=== PATIENT | female | born 1990 | race Caucasian/White ===

== ENCOUNTER → 2022-04-26 15:32 | Outpatient (CLI) | payer BC, SELFPAY | PROVIDERS: PCP Family Medicine; Visit Provider Obstetrics & Gynecology | DX: Z80.3 Family history of malignant neoplasm of breast (principal) | CPT/HCPCS: 36415 ==

== ENCOUNTER → 2022-04-30 13:29 | Outpatient (CLI) | payer BC, SELFPAY ==
--- NOTE | 2022-04-30 13:31 | MM_ITS ---
PROCEDURE INFORMATION: Exam: MG Bilateral Screening 3D Mammography Exam date and time: 04/30/2022 1:23 PM Age: 31 years old Clinical indication: Screening mammogram. TECHNIQUE: Imaging protocol: Bilateral Screening tomosynthesis and 2D mammography including computer-aided detection (CAD) when performed. COMPARISON: No relevant prior studies available. FINDINGS: MAMMOGRAPHY: Breast composition: There are scattered areas of fibroglandular density. Mass: None. Architectural distortion: No new or suspicious architectural distortion. Calcifications: No new or suspicious calcifications are present Asymmetric density: No new or suspicious asymmetric density is present Skin thickening: None. Axillary adenopathy: None. IMPRESSION: No mammographic evidence of malignancy. Recommend annual screening mammography unless otherwise clinically indicated. ASSESSMENT: BI-RADS category 1: Negative
== END ==
PROVIDERS: PCP Family Medicine; Visit Provider Obstetrics & Gynecology
DX: Z12.31 Encounter for screening mammogram for malignant neoplasm of breast (principal); Z80.3 Family history of malignant neoplasm of breast
CPT/HCPCS: 77063; 77067

== ENCOUNTER → 2022-06-01 15:22 | Outpatient (POV) | payer BC, SELFPAY | PROVIDERS: Visit Provider Dermatology | DX: Z00.00 Encounter for general adult medical examination without abnormal findings (principal) ==

== ENCOUNTER → 2022-09-21 12:55 | Outpatient (POV) | payer BC, SELFPAY | PROVIDERS: Visit Provider Dermatology | DX: Z00.00 Encounter for general adult medical examination without abnormal findings (principal) ==

== ENCOUNTER 2023-02-01 16:00 | Emergency (ER) | payer BC, SELFPAY ==
[2023-02-01 16:10] VITALS: BP 150/97; PULSE 115; RESP 20; TEMP 37; O2SAT 100; BMI 29.7
[2023-02-01 16:29] LABS: UTC Strep Screen (Rapid) Positive (Negative)
--- NOTE | 2023-02-01 16:50 | EXP.UTC ---
Discharge Plan Disposition Patient Disposition: Home, Self-Care Condition: Good Prescriptions Prescriptions: New prednisone 10 mg tablet 10 mg PO BID 3 Days Qty: 6 0RF amoxicillin [amoxicillin] 875 mg tablet 875 mg PO Q12H Qty: 20 0RF ondansetron 4 mg Tablet,Disintegrating 4 mg PO Q8H PRN (Reason: Nausea) Qty: 12 0RF No Action Qelbree 200 mg capsule,extended release 24hr 400 mg PO DAILY Qty: 60 1RF vortioxetine 20 mg tablet 20 mg PO DAILY Qty: 30 3RF atomoxetine [Strattera] 40 mg capsule 40 mg PO DAILY Referrals Follow up/Referrals: Jaron Lewis MD [Primary Care Provider] - See instructions Activity Restrictions/Add. Instructions Additional Instructions/Restrictions: Drink plenty of fluids. Take tylenol or ibuprofen for pain or fever. Take the medications as directed. Follow up with your regular doctor. GO TO THE ER FOR ANY WORSENING SYMPTOMS Throw your tooth brush away and get a new one. Clinical Impressions Clinical Impression: Strep throat Instructions Patient Instructions: Strep Throat, DI for Strep Throat Discharge ED Provider: Lizandro White [facility] General Stated complaint: fever sore throat Mode of Arrival: Ambulatory Source of Information: Patient Limitations: No Limitations Time Seen by Provider: 02/01/23 16:50 Description of Symptoms (Recalled from Triage Doc. by RN): sore throat, fever, achy, chills HEENT Symptoms (Recalled from RN notes): Yes Resp Symptoms (Recalled from RN notes): No Skin Symptoms (Recalled from RN notes): No MS Symptoms (Recalled from RN notes): No Functional Status (Recalled from RN notes): n/a History of Present Illness Provider Complaint: She states that she has had sore throat, chills, and malaise for the past 2 days. Related Data Home Medications Medication Instructions Recorded Confirmed atomoxetine 40 mg capsule 40 mg PO DAILY . 02/01/23 02/01/23 (Strattera) Previous Rx's Medication Instructions Recorded viloxazine 200 mg capsule,extended 400 mg PO DAILY #60 caps 12/13/22 release 24 hr (Qelbree) vortioxetine 20 mg tablet 20 mg PO DAILY #30 tabs 12/13/22 amoxicillin 875 mg tablet 875 mg PO Q12H #20 tabs 02/01/23 ondansetron 4 mg disintegrating 4 mg PO Q8H PRN Nausea #12 tabs 02/01/23 tablet prednisone 10 mg tablet 10 mg PO BID 3 days #6 tabs 02/01/23 Allergies Allergy/AdvReac Type Severity Reaction Status Date / Time Sulfa (Sulfonamide Allergy Verified 02/01/23 16:23 Antibiotics) sulfamethoxazole Allergy Verified 02/01/23 16:23 [From Bactrim] trimethoprim [From Bactrim] Allergy Verified 02/01/23 16:23 Worker's Comp Is this a Worker's Comp case?: No [facility] Disclaimer: The information contained in this section may have been updated after the patient was seen, as this information can be updated by other users. Medical History Attention deficit disorder (ADD) in adult Bipolar II disorder Social History Smoking Status: Never smoker alcohol intake: never substance use type: denies use current occupational status: employed and other Travel in the last 8 weeks: None number of children: 2 ROS Obtained: Yes All systems reviewed & no additional complaints except as documented Constitutional Constitutional: Reports chills and Reports fever(s) Eyes Eyes: Denies eye discharge ENT Ears, Nose, Mouth, and Throat: Reports as per HPI Cardiovascular Cardiovascular: Denies chest pain Respiratory Respiratory: Denies chest congestion and Reports cough Gastrointestinal Gastrointestingal: Reports nausea; Denies abdominal pain, constipation, cramping, diarrhea or vomiting Musculoskeletal Musculoskeletal: Denies arthralgias Integumentary/Breasts Skin/Breast: Denies rash Neurologic Neurologic: Denies paresthesias Physical Exam General General appearance: a
[2023-02-01 17:12] VITALS: BP 150/97; PULSE 115; RESP 20; TEMP 37; O2SAT 100
== END 2023-02-01 17:11 | disposition home or self-care (01) ==
PROVIDERS: Emergency Provider Nurse Practitioner Family; PCP Family Medicine
DX: J02.0 Streptococcal pharyngitis (principal); R53.81 Other malaise; R50.9 Fever, unspecified
CPT/HCPCS: 87880; 99212; 99214; G0463

== ENCOUNTER 2024-07-24 16:48 | Outpatient (CLI) | payer BC, SELFPAY ==
--- NOTE | 2024-07-24 16:48 | MM_ITS ---
PROCEDURE INFORMATION: Exam: MG Bilateral Screening 3D Mammography Exam date and time: 07/24/2024 4:34 PM Age: 33 years old Clinical indication: Screening. Her mother, maternal grandmother, paternal aunt had breast cancer. TECHNIQUE: Imaging protocol: Bilateral Screening tomosynthesis and 2D mammography including computer-aided detection (CAD) when performed. COMPARISON: MG MM DIG SCREENING MAMM BI W/CAD 04/30/2022 1:23 PM FINDINGS: MAMMOGRAPHY: Breast composition: There are scattered areas of fibroglandular density. Mass: No suspicious mass. Architectural distortion: None. Calcifications: No suspicious calcifications. Asymmetric density: None. Skin thickening: None. Axillary adenopathy: None. IMPRESSION: No mammographic evidence of malignancy. Annual screening is recommended unless otherwise clinically indicated. ASSESSMENT: BI-RADS Category 1: Negative.
== END 2024-07-24 23:59 | disposition home or self-care (01) ==
LOC: RAD 16:48
PROVIDERS: PCP Obstetrics & Gynecology; Visit Provider Obstetrics & Gynecology
DX: Z12.31 Encounter for screening mammogram for malignant neoplasm of breast (principal); Z80.3 Family history of malignant neoplasm of breast
CPT/HCPCS: 77063; 77067

== ENCOUNTER 2024-08-04 10:09 | Outpatient (CLI) | payer BC, SELFPAY ==
[2024-08-04 10:52] LABS: Basophils % 0.7 % (0.1-2.0); Eosinophils # 0.2 K/mm3 (0.0-0.4); Eosinophils % 2.4 % (0.1-12.0); Hematocrit 38.4 % (37.0-47.0); Hemoglobin 13.1 g/dL (12.2-16.2); Lymphocytes # 2.3 K/mm3 (0.7-4.5); Lymphocytes % 38.5 % (10-50); Mean Corpuscular Hemoglobin 28.7 pg (27.0-31.2); Mean Corpuscular Volume 84.4 fl (81-99); Mean Platelet Volume 7.3 fl (7.4-10.4); Monocytes # 0.3 K/mm3 (0.1-1.0); Monocytes % 5.3 % (1.7-9.3); Neutrophils # 3.2 K/mm3 (1.8-7.8); Neutrophils % 53.1 % (37.0-80.0); Platelet Count 365 K/mm3 (142-424); Red Blood Count 4.55 M/mm3 (4.20-5.40); Red Cell Distribution Width 12.8 % (11.5-17.5); White Blood Count 6.1 K/mm3 (4.8-10.8)
[2024-08-04 11:11] LABS: Alanine Aminotransferase 57 U/L (12-78); Albumin Level 4.2 g/dl (3.5-5.0); Albumin/Globulin Ratio 1.6 (1.1-1.8); Alkaline Phosphatase 69 U/L (38-126); Anion Gap 8.4 mEq/L (5-15); Aspartate Amino Transferase 41 U/L (14-36); Bilirubin,Total 0.6 mg/dl (0.2-1.3); Blood Urea Nitrogen 12 mg/dl (7-17); Calcium 9.2 mg/dl (8.4-10.2); Carbon Dioxide 25 mmol/L (22.0-30.0); Chloride 109 mmol/L (98-107); Estimated Glomerular Filt Rate 82 ml/min (>60); GFR (African American) 99 ML/MIN (>60); Globulin 2.7 g/dL (1.3-3.2); Glucose 87 mg/dl (74-100); Potassium 4.4 mmoL/L (3.5-5.1); Sodium 138 mmol/L (136-145); Total Protein,Serum 6.9 g/dl (6.3-8.2)
[2024-08-04 11:32] LABS: Hemoglobin A1C 5.2 % (4.0-6.0)
[2024-08-05 09:09] LABS: Estradiol 19.5 pg/mL (.); FSH 5.4 mIU/mL (.); LH 6.5 mIU/mL (.); Progesterone 0.1 ng/mL (.)
[2024-08-06 12:15] LABS: Insulin Level Total 10.7 uIU/mL (2.6-24.9)
[2024-08-16 01:08] LABS: Anti Mullerian Hormone (AMH) 7.41 ng/mL (.)
[2024-08-23 20:10] LABS: Testosterone, Total, LC/MS 25 ng/dL (.)
== END 2024-08-04 23:59 | disposition home or self-care (01) ==
LOC: LAB 10:09
PROVIDERS: PCP Obstetrics & Gynecology; Visit Provider Obstetrics & Gynecology
DX: Z31.9 Encounter for procreative management, unspecified (principal); Z98.890 Other specified postprocedural states
CPT/HCPCS: 36415; 80050; 80053; 82397; 82670; 83001; 83002; 83036; 83525; 84144; 84403; 84443; 85025

== ENCOUNTER 2024-08-14 18:25 | Emergency (ER) | payer BC, SELFPAY ==
[2024-08-14 18:55] VITALS: BP 122/78; PULSE 119; RESP 20; TEMP 37.7; O2SAT 99; BMI 32.5
[2024-08-14 19:09] LABS: Microscopic, Urine URINE MICROSCOPIC (MICROSCOPIC)
[2024-08-14 19:11] LABS: UTC Influenza A Antigen Negative (Negative)
[2024-08-14 19:12] LABS: UTC Strep Screen (Rapid) Negative (Negative)
[2024-08-14 19:12] LABS: Appearance,Urine CLEAR (Clear); Bilirubin,Urine Negative (Negative); Blood, Urine 1+ (Negative); Color,Urine YELLOW (Yellow); Glucose,Urine (UA) Negative (Negative); Ketones,Urine 1+ (Negative); Leukocyte Esterase,Urine Negative (Negative); Nitrate,Urine Negative (Negative); Protein,Urine TRACE (Negative); Specific Gravity, Urine >= 1.030 (1.005-1.030); Urobilinogen,Urine 0.2 EU/dl (0.2)
[2024-08-14 19:12] LABS: UTC Influenza B Antigen Negative (Negative)
--- NOTE | 2024-08-14 19:21 | ED_ITS ---
Discharge Plan Disposition Patient Disposition: Home, Self-Care Condition: Good Prescriptions Prescriptions: New methylprednisolone 4 mg Tablets,Dose Pack 4 mg PO DIRECTED 6 Days Qty: 21 0RF Rx Instructions: Take 1 pack as directed for 6 days [id number] [Bromfed DM] 2-30-10 mg/5 mL Syrup 5 ml PO Q6H PRN (Reason: Cough) Qty: 240 0RF ondansetron 4 mg Tablet,Disintegrating 4 mg PO Q8H PRN (Reason: Nausea) Qty: 12 0RF amoxicillin 875 mg tablet 875 mg PO Q12H Qty: 20 0RF No Action Trintellix 20 mg tablet 20 mg PO DAILY clomiphene citrate [Clomid] 50 mg tablet 50 mg PO DAILY 5 Days Qty: 5 0RF Rx Instructions: Take days 3-7 of your next cycle Referrals Follow up/Referrals: Provider,Referral, MD [Primary Care Provider] - See instructions Activity Restrictions/Add. Instructions Additional Instructions/Restrictions: Drink plenty of fluids. Take tylenol or ibuprofen for pain or fever. Take the medications as directed. Follow up with your regular doctor. GO TO THE ER FOR ANY WORSENING SYMPTOMS Clinical Impressions Clinical Impression: Sinusitis, Bronchitis, Acute viral syndrome Stand Alone Forms Stand Alone Forms: Work/School Release Instructions Patient Instructions: Sinusitis, DI for Sinusitis Print Language Print Language: Syriac Discharge ED Provider: Lizandro White [facility] General Stated complaint: Fever,cough,congestion Mode of Arrival: Ambulatory Source of Information: Patient Limitations: No Limitations Time Seen by Provider: 08/14/24 19:08 Description of Symptoms (Recalled from Triage Doc. by RN): PATIENT C/O FEVER, COUGH, FEELING TIRED, BODY ACHES, AND PAIN WITH URINATION X 5 DAYS HEENT Symptoms (Recalled from RN notes): No Resp Symptoms (Recalled from RN notes): Yes Skin Symptoms (Recalled from RN notes): No MS Symptoms (Recalled from RN notes): No Functional Status (Recalled from RN notes): WNL History of Present Illness Provider Complaint: For the past 2 days she has had fever, chills, sinus congestion and chest congestion. Related Data Home Medications ?Medication ?Instructions ?Recorded ?Confirmed vortioxetine 20 mg tablet 20 mg PO DAILY 07/19/24 08/14/24 (Trintellix) Previous Rx's ?Medication ?Instructions ?Recorded clomiphene citrate 50 mg tablet 50 mg PO DAILY 5 days #5 tabs 07/19/24 (Clomid) amoxicillin 875 mg tablet 875 mg PO Q12H #20 tabs 08/14/24 zqlrvuqtyemeaix-qzkgtuhjazgkeyi-KB 5 ml PO Q6H PRN Cough #240 mL 08/14/24 2 mg-30 mg-10 mg/5 mL oral syrup (Bromfed DM) methylprednisolone 4 mg tablets in 4 mg PO DIRECTED 6 days #21 tabs 08/14/24 a dose pack ondansetron 4 mg disintegrating 4 mg PO Q8H PRN Nausea #12 tabs 08/14/24 tablet Allergies Allergy/AdvReac Type Severity Reaction Status Date / Time Sulfa (Sulfonamide Allergy Verified 08/13/24 15:33 Antibiotics) sulfamethoxazole Allergy Verified 08/13/24 15:33 [From Bactrim] trimethoprim [From Bactrim] Allergy Verified 08/13/24 15:33 Worker's Comp Is this a Worker's Comp case?: No [facility] Disclaimer: The information contained in this section may have been updated after the patient was seen, as this information can be updated by other users. Medical History (Updated 08/14/24 @ 19:23 by Lizandro White APRN) Polycystic ovaries Depression Family history of breast cancer Patient desires Attention deficit disorder (ADD) in adult Bipolar II disorder Surgical History History of reversal of tubal ligation Family History Grandmother Cancer maternal-breast Mother Cancer breast Social History Smoking Status: Never smoker alcohol intake: never substance use type: denies use current occupational status: employed and other Travel in the last 8 weeks: None number of children: 2 ROS Obtained: Yes All systems reviewed & no additional complaints except as documented Constitutional Constitutional: Reports chills and Reports fever(s) Eyes Eyes: Denies eye discharge ENT Ears, Nose, Mouth, and Throat: Reports as per HPI Cardiovascular Cardiovascular: Denies chest pain Respiratory Respiratory: Denies chest congestion and Reports cough Gastrointestinal Gastrointestingal: Reports nausea; Denies abdominal pain, constipation, cramping, diarrhea or vomiting Musculoskeletal Musculoskeletal: Denies arthralgias Integumentary/Breasts Skin/Breast: Denies rash Neurologic Neurologic: Denies paresthesias Physical Exam General General appearance: alert and in no apparent distress Head Head exam: atraumatic, normocephalic and normal inspection Eye Eye exam: Present normal appearance, PERRL and EOMI ENT ENT exam: Present mucous membranes moist and normal external ear exam Expanded ENT Exam TM/Canal exam: Bilateral TM: erythema and bulging Nose exam: Absent sinus tenderness Mouth exam: Present normal external inspection; Absent drooling Teeth exam: Present normal inspection Throat exam: Present tonsillar erythema, tonsillomegaly and tonsillar exudate Neck Neck exam: Present normal inspection, full ROM and trachea midline; Absent tenderness, meningismus or lymphadenopathy Chest Chest inspection: Present normal inspection and symmetric chest wall rise; Absent tenderness Respiratory Respiratory exam: Present normal lung sounds bilaterally; Absent respiratory distress, wheezes, stridor or accessory muscle use Cardiovascular Cardiovascular exam: Present regular rate and normal rhythm; Absent systolic murmur or diastolic murmur Abdominal Exam Abdominal exam: Present soft and normal bowel sounds; Absent distention, tenderness, guarding, rebound or rigidity Extremities Exam Extremities exam: Present normal inspection and normal capillary refill; Absent calf tenderness Back Exam Back exam: Present normal inspection and full ROM; Absent tenderness, CVA tenderness (R) or CVA tenderness (L) Neurological Exam Neurological exam: Present alert, oriented X3 and CN II-XII intact Psychiatric Psychiatric exam: Present normal affect and normal mood Skin Skin exam: Present warm, dry, intact and normal color Medical Decision Making Medical Records Medical records reviewed: No I reviewed the patient's medical records. Screening: Per USPSTF and CDC recommendations, given the prevalence of disease in our region, it is our hospital?s policy to screen for HIV and viral Hepatitis for all patients aged 18 and over and those with ongoing risk factors. Reynaldo Inquiry Pt receiving controlled substance: No Vital Signs: 08/14/24 18:55 Temperature 99.8 F H Temperature Source Oral Pulse Rate [Left Brachial] 119 H Respiratory Rate 20 Blood Pressure [Left Arm] 122/78 Blood Pressure Mean [Left Arm] 92 Blood Pressure Source [Left Arm] Automatic Cuff Blood Pressure Position [Left Arm] Sitting 02 Sat by Pulse Oximetry 99 Oxygen Delivery Method Room Air Lab Data Lab results reviewed: Yes I reviewed the patient's lab results. Lab Results 08/14/24 18:48: Urine Color Yellow, Urine Appearance Clear, Urine pH 6.0, Ur Specific [place] >= 1.030, Urine Protein Trace, Urine Glucose (UA) Negative, Urine Ketones 1+, Urine Blood 1+ A, Urine Nitrate Negative, Urine Bilirubin Negative, Urine Urobilinogen 0.2, Ur Leukocyte Esterase Negative 08/14/24 19:01: Strep Scn Rapid [facility] Negative 08/14/24 19:02: Influenza Type A Ag Negative, Influenza Type B Ag Negative Orders (Tests/Meds): ORDERS Category Date Time Status UA [Urinalysis and Microscopic] Stat Lab 08/14/24 18:48 Results Strep Screen Confirmation Stat Micro 08/14/24 19:01 Received
[2024-08-14 19:25] VITALS: BP 122/78; PULSE 119; RESP 20; TEMP 37.7; O2SAT 99
[2024-08-14 19:28] LABS: Bacteria,Urine 2+ /lpf; Mucus,Urine 4+ /lpf; RBC,Urine 20-50 #/hpf (0-3); Squamous Epithelial Cell,Urine 20-50 #/hpf (0-5)
== END 2024-08-14 19:30 | disposition home or self-care (01) ==
PROVIDERS: Emergency Provider Nurse Practitioner Family
DX: J01.90 Acute sinusitis, unspecified (principal); J40 Bronchitis, not specified as acute or chronic; B34.9 Viral infection, unspecified
CPT/HCPCS: 81001; 87086; 87635; 87804; 87880; 99213; G0381

== ENCOUNTER 2024-09-21 16:53 | Outpatient (CLI) | payer BC, SELFPAY ==
[2024-09-22 10:18] LABS: Progesterone 17.6 ng/mL (.)
== END 2024-09-21 23:59 | disposition home or self-care (01) ==
LOC: LAB 16:55
PROVIDERS: Visit Provider Obstetrics & Gynecology
DX: Z31.9 Encounter for procreative management, unspecified (principal)
CPT/HCPCS: 36415; 84144

== ENCOUNTER 2024-10-05 07:05 | Outpatient (CLI) | payer BC, SELFPAY ==
[2024-10-05 08:41] LABS: HCG,Quantitative 876 mIU/ml (0-5.42)
[2024-10-06 09:20] LABS: Progesterone 19.4 ng/mL (.)
== END 2024-10-05 23:59 | disposition home or self-care (01) ==
PROVIDERS: Visit Provider Obstetrics & Gynecology
DX: N92.6 Irregular menstruation, unspecified (principal); Z34.90 Encounter for supervision of normal pregnancy, unspecified, unspecified trimester
CPT/HCPCS: 36415; 84144; 84702

== ENCOUNTER 2024-11-08 15:10 | Outpatient (CLI) | payer BC, SELFPAY ==
[2024-11-09 19:19] LABS: Neisseria gonorrhoeae, NAA Negative (Negative)
== END 2024-11-08 23:59 | disposition home or self-care (01) ==
LOC: LAB.DROPOF 11-09 10:19
PROVIDERS: PCP Obstetrics & Gynecology; Visit Provider Obstetrics & Gynecology
DX: Z34.81 Encounter for supervision of other normal pregnancy, first trimester (principal)
CPT/HCPCS: 87086; 87491; 87591

== ENCOUNTER 2024-11-22 16:39 | Outpatient (CLI) | payer BC, SELFPAY ==
[2024-11-22 16:59] LABS: Basophils % 0.2 % (0.1-2.0); Eosinophils # 0.1 K/mm3 (0.0-0.4); Eosinophils % 1.3 % (0.1-12.0); Hematocrit 32.8 % (37.0-47.0); Hemoglobin 11.3 g/dL (12.2-16.2); Lymphocytes # 2.7 K/mm3 (0.7-4.5); Lymphocytes % 28.7 % (10-50); Mean Corpuscular HGB Conc 34.5 g/dL (31.8-35.4); Mean Corpuscular Hemoglobin 28.8 pg (27.0-31.2); Mean Corpuscular Volume 83.5 fl (81-99); Mean Platelet Volume 9.4 fl (7.4-10.4); Monocytes # 0.6 K/mm3 (0.1-1.0); Neutrophils % 63.4 % (37.0-80.0); Platelet Count 327 K/mm3 (142-424); Red Blood Count 3.93 M/mm3 (4.20-5.40); Red Cell Distribution Width 12.5 % (11.5-17.5); White Blood Count 9.5 K/mm3 (4.8-10.8)
[2024-11-22 18:49] LABS: HIV Combo NEGATIVE (Negative)
[2024-11-22 18:56] LABS: Hepatitis C Ab Qual. W/ RFX NEGATIVE (Negative)
[2024-11-23 05:08] LABS: Hepatitis B Surface Antigen Negative (Negative)
[2024-11-23 12:19] LABS: RPR W/RFX Titers Nonreactive (Nonreactive)
== END 2024-11-22 23:59 | disposition home or self-care (01) ==
LOC: LAB 16:39
PROVIDERS: Visit Provider Obstetrics & Gynecology
DX: Z34.81 Encounter for supervision of other normal pregnancy, first trimester (principal)
CPT/HCPCS: 85025; 86592; 86762; 86803; 86850; 87340; 87389

== ENCOUNTER 2025-01-21 13:41 | Outpatient (CLI) | payer BC, SELFPAY ==
--- NOTE | 2025-01-21 13:42 | US_ITS ---
PROCEDURE: US OB /MATERNAL DETAIL CLINICAL INDICATION: Screening for malformation/anatomy scan COMPARISON: No exams were available for comparison FINDINGS: Transabdominal sonographic images of the pelvis were obtained. From her established due date she is 20 weeks 2 days. Single viable intrauterine gestation. Breech position. Placenta: Anteriorplacenta grade 1. There is an average amount of fluid. The cervix appears satisfactory. Closed and measuring 4.73 cm in length. Complete survey performed and was unremarkable on the submitted images as in PACS. No discrete anomalies identified on survey imaging by technologist. Active fetus. Three-vessel cord with satisfactory umbilical cord insertion. 4- chamber heart noted. Situs, aortic arch, LVOT, RVOT, appear normal. Three-vessel view not seen well today. Survey of brain & ventricles Unremarkable. Cerebellum, thalamus, choroid plexus, cisterna magna appear normal. Face and neck survey unremarkable. Profile, nasion, lips and nose appeared normal. Diaphragm and chest views unremarkable. Abdomen: Both kidneys noted and unremarkable. Stomach and bladder noted and satisfactory. Spine: Survey of the spine satisfactory with no anomalies identified nor imaged. Cervical, thoracic, lower spine appear normal. Entire spine not completely seen well. Both arms and legs noted. Amniotic Fluid: Adequate. MVP 5.13 cm. Measurements: Average ultrasound age 20weeks 1day. Estimated due date by ultrasound age 0806/09/2025. Estimated weight 349g BPD = 19weeks 3days HC = 19weeks 5days AC = 20weeks 3days FL = 20weeks 5days Growth Percentile= 50 Heart Rate = 161bpm Cerebellum = 20weeks 2days Humerus = 20weeks 5days HC/AC is 1.13 FL/BPD is 0.77 FL/AC is 0.22 IMPRESSION: 1. Viable fetus in the breech presentation with an anterior placenta grade 1. 2. The fluid is within normal limits with an MVP 5.13 cm. 3. Cardiac views and spinal views were not completely seen today due to position. Suggest repeat scan in 2-3 weeks. 4. The rest of the anatomical scan appears normal. 5. biometry is consistent with the dates. Dictated by: Chris Wolf MD 01/21/2025 15:58 Chris Wolf MD in [place] 01/21/2025 15:58
== END 2025-01-21 23:59 | disposition home or self-care (01) ==
LOC: RAD 13:42
PROVIDERS: PCP Obstetrics & Gynecology; Visit Provider Obstetrics & Gynecology
DX: Z36.3 Encounter for antenatal screening for malformations (principal); Z3A.20 20 weeks gestation of pregnancy
CPT/HCPCS: 76811

== ENCOUNTER 2025-02-06 12:48 | Outpatient (CLI) | payer BC, SELFPAY ==
[2025-02-06 13:07] VITALS: BP 125/68; PULSE 91; RESP 18; TEMP 36.8; O2SAT 98; BMI 31.1
[2025-02-06 13:28] VITALS: BMI 31.1
[2025-02-06 13:44] LABS: Microscopic, Urine URINE MICROSCOPIC (MICROSCOPIC)
[2025-02-06 14:17] LABS: Bilirubin,Urine Negative (Negative); Blood, Urine 3+ (Negative); Color,Urine YELLOW (Yellow); Glucose,Urine (UA) Negative (Negative); Ketones,Urine Negative (Negative); Leukocyte Esterase,Urine 1+ (Negative); Nitrate,Urine Negative (Negative); Protein,Urine 2+ (Negative); Specific Gravity, Urine 1.025 (1.005-1.030); Urobilinogen,Urine 0.2 EU/dl (0.2)
[2025-02-06] MEDS: CEFTRIAXONE 1 GM 1 GM in 0.9 % SODIUM CHLORIDE 50 ML IV (15:13)
[2025-02-06 15:27] LABS: Appearance,Urine Cloudy (Clear); Bacteria,Urine 4+ /lpf; RBC,Urine TNTC #/hpf (0-3); Squamous Epithelial Cell,Urine 20-50 #/hpf (0-5); WBC,Urine TNTC #/hpf (0-3)
[2025-02-06] MEDS: LACTATED RINGERS 1000ML 1,000 ML 999 ML IV (15:43)
[2025-02-06] MEDS: ACETAMINOPHEN 500MG TAB 1000 MG PO (15:44)
== END 2025-02-06 17:15 | disposition home or self-care (01) ==
LOC: OBOUT 12:49 → OB 12:50
PROVIDERS: Visit Provider Obstetrics & Gynecology
DX: O26.852 Spotting complicating pregnancy, second trimester (principal); Z3A.22 22 weeks gestation of pregnancy
CPT/HCPCS: 81001; 87086; 87088; 87186; G0463; J0696; J7120

== ENCOUNTER 2025-02-07 15:29 | Outpatient (CLI) | payer BC, SELFPAY ==
--- NOTE | 2025-02-07 15:45 | US_ITS ---
PROCEDURE: US OB FOLLOW UP CLINICAL INDICATION: Repeat anatomy due to spinal heart views. COMPARISON: US US OB /MATERNAL DETAIL from 01/21/2025 FINDINGS: Transabdominal sonographic images of the pelvis were obtained. The following parameters are obtained: From her established due date she is 22weeks 5days Viable fetus in the breech presentation with an anterior placenta grade 1. The cervix measures 3.55 cm heart rate: 139bpm bpm. Amniotic fluid: MVP 5.73 cm No obvious anomalies evident. profile seen, stomach, bladder, kidneys, three-vessel cord, four chamber heart appear normal. spine: Cervical, thoracic and lower spine were seen and appear normal. heart: 3 vessel view, RVOT, LVOT, four-chamber heart appear normal. IMPRESSION: 1. Viable fetus in the breech presentation with an anterior placenta grade 1. 2. The fluid is within normal limits with an MVP 5.73 cm. 3. cardiac anatomy and spinal anatomy today were seen and appear normal. 4. The rest of the limited anatomical scan appears normal. Dictated by: Chris Wolf MD 02/07/2025 16:43 Chris Wolf MD in [place] 02/07/2025 16:43
== END 2025-02-07 23:59 | disposition home or self-care (01) ==
LOC: RAD 15:29
PROVIDERS: PCP Obstetrics & Gynecology; Visit Provider Obstetrics & Gynecology
DX: O09.522 Supervision of elderly multigravida, second trimester (principal); Z13.71 Encounter for nonprocreative screening for genetic disease carrier status; Z3A.22 22 weeks gestation of pregnancy
CPT/HCPCS: 76816

== ENCOUNTER 2025-04-01 09:15 | Outpatient (CLI) | payer BC, SELFPAY ==
[2025-04-01 10:51] LABS: Basophils % 0.3 % (0.1-2.0); Eosinophils # 0.1 Kmm3 (0.0-0.4); Eosinophils % 0.9 % (0.1-12.0); Hematocrit 32.3 % (37.0-47.0); Hemoglobin 10.9 g/dL (12.2-16.2); Immature Granulocytes # 0.17 10^3uL; Immature Granulocytes % 1.5 %; Lymphocytes # 1.8 K/mm3 (0.7-4.5); Lymphocytes % 15.9 % (10-50); Mean Corpuscular HGB Conc 33.7 g/dL (31.8-35.4); Mean Corpuscular Volume 85.9 fl (81-99); Mean Platelet Volume 9.7 fl (7.4-10.4); Monocytes # 0.6 K/mm3 (0.1-1.0); Monocytes % 5.4 % (1.7-9.3); Neutrophils # 8.8 K/mm3 (1.8-7.8); Nucleated Red Blood Cells # 0 10^3/uL; Nucleated Red Blood Cells % 0 %; Platelet Count 334 K/mm3 (142-424); Red Blood Count 3.76 M/mm3 (4.20-5.40); Red Cell Distribution Width 13.3 % (11.5-17.5); Red Cell Distribution Width-SD 41.5 fL; White Blood Count 11.6 K/mm3 (4.8-10.8)
[2025-04-01 10:54] LABS: Glucose 1 Hour 95 mg/dL (74-100)
[2025-04-01 15:31] LABS: RPR W/RFX Titers Nonreactive (Nonreactive)
== END 2025-04-01 23:59 | disposition home or self-care (01) ==
LOC: LAB 09:16
PROVIDERS: Visit Provider Obstetrics & Gynecology
DX: Z34.82 Encounter for supervision of other normal pregnancy, second trimester (principal); Z3A.00 Weeks of gestation of pregnancy not specified
CPT/HCPCS: 36415; 82947; 85025; 86592

== ENCOUNTER 2025-05-09 11:36 | Outpatient (CLI) | payer BC, SELFPAY ==
--- NOTE | 2025-05-09 11:30 | US_ITS ---
PROCEDURE: US OB BIOPHYSICAL PROFILE CLINICAL INDICATION: Decreased Movement COMPARISON: US US OB /MATERNAL DETAIL from 01/21/2025 US US OB FOLLOW UP from 02/07/2025 FINDINGS: Transabdominal sonographic images of the uterus were obtained. From her established due date she is 35weeks 5days. The following parameters are obtained: Viable Fetus in the cephalic presentation with an anterior placenta grade 2. Average ultrasound age is 35weeks 3days Estimated weight 2,662g, 5 lb 14 oz The cervix measures 3.77 cm Measurements: heart Rate = 146bpm BPD = 35weeks 0 days, 33 percentile HC = 35weeks 3days, 14 percent AC = 35weeks 3days, 49 percentile FL = 35weeks 5days, 41 percentile HC/AC is 1 FL/BPD is 0.8 FL/AC is 0.22 40 percentile Amniotic fluid index: 21.99cm, MVP 8.06 cm Qualitative AFV:2 Breathing movements: 2 Gross Body Movements: 2 Tone: 2 Biophysical profile score: 8 No obvious anomalies evident.Kidneys, profile, bladder, stomach, four-chamber heart, three-vessel cord appear normal. IMPRESSION: 1. Viable fetus in the cephalic presentation with an anterior placenta grade 2. 2. The fluid is within normal limits with an amniotic fluid index 21.99 cm, MVP 8.06 cm. 3. Biophysical profile is 8/8 with good breathing movement and movement seen. 4. There has been good interval growth with the fetus currently 40th percentile. 5. The patient was concerned that there may have been a nuchal cord but Doppler studies showed that there did not appear to be a nuchal cord. 6. Limited anatomical scan appears normal. Dictated by: Chris Wolf MD 05/09/2025 13:32 Chris Wolf MD in OV 05/09/2025 13:32
== END 2025-05-09 23:59 | disposition home or self-care (01) ==
LOC: RAD 11:37
PROVIDERS: PCP Obstetrics & Gynecology; Visit Provider Obstetrics & Gynecology
DX: O09.523 Supervision of elderly multigravida, third trimester (principal); O36.8130 Decreased fetal movements, third trimester, not applicable or unspecified; Z13.71 Encounter for nonprocreative screening for genetic disease carrier status; Z3A.35 35 weeks gestation of pregnancy
CPT/HCPCS: 76816; 76819

== ENCOUNTER 2025-05-31 13:30 | Outpatient (CLI) | payer BC, SELFPAY ==
--- OUTSIDE RECORDS SUMMARY | 2024-05-01 10:25 | XMS_ITS ---
Author Organization [facility] Address [address] [place] [address] Care Team Providers Care Spinner Hand Name Role Phone Salud Kenny Unavailable [phone] Allergies Allergen (clinical drug ingredient) Drug/Non Drug [...] No Section Notes: Do you have any cheondoism or culture customs that your provider should [...] No Encounters Encounter Location Date Provider Diagnosis [facility] [address] [place] [address] 05/01/2024 Salud Kenny Plan Of Treatment No Information Progress Notes * Mindy HANKINS:[birth year] (34 yo F)Acc No.[id number]:05/01/2024 Patient: Cy JACKSONsha :1990 A ge:33 Y S ex:Female Address:[address] [place] [address], [place] [address] Subjective: * Chief Complaints: * Medical History: None of these apply Anxiety Depression Special assistance needed for care: None * Emergency Medical Technician 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 D o you have any cheondoism or culture customs that your provider should [...]
--- OUTSIDE RECORDS SUMMARY | 2025-06-01 10:07 | XMS_ITS | Clinical Summary ---
Author Organization [facility] Address [address] [place] [address] Care Team Providers Care Wood Coater Name Role Phone Provider, No Known Primary Care Provider Unavail able Allergies No known active allergies Medications phentermine (ADIPEX-P) 37.5 MG tablet TAKE 1 TABLET BY MOUTH ONCE DAILY IN THE MORNING FOR 30 DAYS 03/24/2022 Active desvenlafaxine (PRISTIQ) 50 MG 24 hr tablet Take 50 mg by mouth Daily. 03/14/2022 Active Lumateperone Tosylate (Caplyta) 42 MG capsule Take by mouth. Active Active Problems Problem Noted Date Diagnosed Date Family history of breast cancer 04/15/2022 Overview (04/15/2022): Her mother was diagnosed at age 48, genetics were negative for her mother. Discussed screening beginning at age 37 and monthly SBE. Resolved Problems Problem Noted Date Diagnosed Date Resolved Date 05/01/2018 05/05/2018 Previous delivery, antepartum 12/16/2017 05/05/2018 anomaly 12/16/2017 01/12/2018 Immunizations Immunization Administration Dates Next Due Hepatitis A 07/27/2019,01/17/2019 Family History Medical History Relation Name Comments Hypertension Father Coronary artery disease Maternal Grandfather Diabetes Maternal Grandfather Stroke Maternal Grandfather Breast cancer Maternal Grandmother Melanoma Maternal Grandmother Osteoporosis Maternal Grandmother Breast cancer Mother Diabetes Mother Breast cancer Paternal Aunt Colon cancer Neg Hx Deep vein thrombosis Neg Hx Ovarian cancer Neg Hx Prostate cancer Neg Hx Pulmonary embolism Neg Hx Uterine cancer Neg Hx Relation Name Status Comments Father Maternal Grandfather Maternal Grandmother Mother Paternal Aunt Social History Tobacco Use Types Packs/Day Years Used Date Smoking Tobacco: Never Smokeless Tobacco: Never Alcohol Use Standard Drinks/Week Comments Yes 0 (1 standard drink = 0.6 oz pur e alcohol) rare use when not [place] Depression Scale Answer Date Recorded Retired [place] Depression Score 9 05/04/2018 Retired EPD Scale: Thought of Harming Self Unrec ognized value 05/04/2018 Abuse Screen Answer Date Recorded Unsafe at Home or Work/School Not on file Feels Threatened by Someone? Not on file 07/2023 Does Anyone Keep You from Co ntacting Others or Doint Things Outside the Home? Not on file 08/09/2023 Physical Sign of Abuse Present Not on file 1 Housing Stability Answer Date Recorded Current Living Arrangements Not on file 07/31 Potentially Unsafe Housing Conditions Not on roxane e 08/09/2023 Family and Community Support Answer Alexis e Recorded Help with Day-to-Day Activities Not on file 08/09/2023 Lonely or Isolated Not on file 08/09/2023 Employment Answer Date Recorded Do you want help finding or keeping work or a jessie b? Not on file 08/09/2023 Disabilities Answer Date Recorded Concentrating, Remembering, or Making Decisions Difficulty Not on file 08/09/2023 Doing Errands Independently Difficulty Not on fi le 08/09/2023 Education Answer Date Recorded Help with school or training? Not on file Preferred Language Not on file 08/09/2023 Comments No Sex and Gender Information Value Date Recorded Sex Assigned at Not on file Legal Sex Female 1:44 PM EDT Gender Identity Not on file Sexual Orientation Not on file Last Filed Vital Signs Vital Sign Reading Time Taken Comments Blood Pressure 118/62 04/15/2022 3:26 PM EDT Pulse 84 05/05/2018 8:00 AM EDT Temperature 36.4 C (97.6 F) 05/05/2018 8:00 AM EDT Respiratory Rate 16 05/05/2018 8:00 AM EDT Oxygen Saturation 99% 05/02/2018 8:28 PM EDT Inhaled Oxygen Concentration - - Weight 85.5 kg (188 lb 6.4 oz) 04/15/2022 3:26 P M EDT Height 170.2 cm (5' 7 ) 04/15/2022 3:26 PM EDT Body Mass Index 29.51 04/15/2022 3:26 PM EDT Plan of Treatment Health Maintenance Due Date Last Done Comments TDAP/TD VACCINES (1 - Tdap) 2008 ANNUAL PHYSICAL 12/16/2017 HEPATITIS C SCREENING 12/16/2017 Annual Gynecologic Pelvic an d Breast Exam 04/16/2023 04/15/2022 COVID-19 Vaccine (2023-2 5 season) 2024 INFLUENZA VACCINE 07/31/2025 Pneumococcal Vaccine 0-49 Aged Out No longer eligible based on patient's age to complete this topic Insurance EMPLOYEE Advance Directives * CPR (Attempt to Resuscitate) (Latest Code Status on File) Date Activated Date Inactivated Comments 05/02/2018 9:08 PM 05/05/2018 2:38 PM Question Answer Comments Code Status (Patient has no pulse and is not breathing): CPR (Attempt to Resuscitate) Medical Interventions (Patie nt has pulse or is breathing): Full * CPR (Attempt to Resuscitate) Date Activated Date Inactivated Comments 05/01/2018 6:09 PM 05/02/2018 9:08 PM Question Answer Comments Code Status (Patient has no pulse and is not breathing): CPR (Attempt to Resuscitate) Medical Interventions (Patie nt has pulse or is breathing): Full * CPR (Attempt to Resuscitate) Date Activated Date Inactivated Comments 05/01/2018 6:09 PM 05/01/2018 6:09 PM Question Answer Comments Code Status (Patient has no pulse and is not breathing): CPR (Attempt to Resuscitate) Medical Interventions (Patie nt has pulse or is breathing): Full Care Teams Wood Coater Relationship Specialty Start Date End Date Provider, [place] [address] PCP - General 05/08/24
--- OUTSIDE RECORDS SUMMARY | 2025-06-01 10:07 | XMS_ITS | Patient Health Record ---
Author Organization [facility] Address [address] [place] [address] Care Team Providers Care Harvest Crew Supervisor Name Role Phone Salud Kenny Unavailable [phone] Allergies Allergen (clinical drug ingredient) Drug/Non Drug Allergy documented on EMR Reaction Allergy Type Onset Date Status Substance with sulfonamide structure and antibacterial mechanism of action (substance) Sulfa (uncoded) Unknown Allergy Active Results Component Value Reference Range Notes PROGESTERONE Reviewed date:06/18/2024 01:11:48 PM Interpretation:Nonovulatory Performing Lab: Notes/Report: Progesterone Reference Ranges: Adult Males: 0.0-0.5 ng/mL Adult Femles: Follicular phase 0.1-0.9 ng/mL Ovulation phase 0.1-12.0 ng/mL Luteal phase 1.8-23.9 ng/mL Postmenopausal 0.0-0.1 ng/mL : First Trimester 11.0-44.3 ng/mL Second Trimester 25.4-83.3 ng/mL Third Trimester 58.7-214.0 ng/mL Results may be falsely increased if patient taking Biotin. PROGESTERONE LEVEL <0.05 Lab speci mens received at a [facility].?See result details for the performing location information. Reason For Referral No Information Immunizations Vaccine Route Administration Date Status Comme nts Influenza, seasonal Unknown 10/31/2022 Administered 3 SARS-COV-2 Unknown 10/31/2019 Administered 2019 Social History Sex Assigned At : Social History Observation Description Sex Assigned At Female Social History Additional Details Category Social Info Options Details Miscellaneous: Domestic violence: No Section Notes: Do you have any worship or culture customs that your provider should [...] in the event of an emergency?: No Do you have any worship or culture customs that your provider should [...] No Encounters Encounter Location Date Provider Diagnosis [facility] [address] [place] [address] 06/18/2024 Salud Kenny Plan Of Treatment No Information Insurance Providers Payer Name Payer Address Payer Phone Subscriber Number Group Number Insured Name Patient Relationship to Insured Coverage Start Date Coverage End Date Kelly HEREDIAO [address] [place] [address] [id number] Kelly Hankins Self - patient is the insured Medical (General) History Medical History History ICD Code Anxiety Depression Surgical History Surgery Date(Month/Year) Bilateral Tubal ligation Bilateral Tubal Reversal
== END 2025-05-31 23:59 | disposition home or self-care (01) ==
LOC: LAB.DROPOF 06-01 10:06
PROVIDERS: PCP Obstetrics & Gynecology; Visit Provider Obstetrics & Gynecology
DX: N39.0 Urinary tract infection, site not specified (principal)
CPT/HCPCS: 87086

== ENCOUNTER 2025-06-04 04:56 | Inpatient (IN) | payer BC, SELFPAY ==
--- OUTSIDE RECORDS SUMMARY | 2024-05-01 10:25 | XMS_ITS ---
Author Organization [facility] Address [address] [address] [place] [address] Care Team Providers Care Dry Pan Charger Name Role Phone Salud Kenny Unavailable [phone] Allergies Allergen (clinical drug ingredient) Drug/Non Drug [...] No Section Notes: Do you have any taoism or culture customs that your provider should [...] No Encounters Encounter Location Date Provider Diagnosis [facility] [address] [place] [address] 05/01/2024 Salud Kenny Plan Of Treatment No Information Progress Notes * Mindy HANKINS:[birth year] (34 yo F)Acc No.[id number]:05/01/2024 Patient: Cy JACKSONsha :1990 A ge:33 Y S ex:Female Address:[address] [place] [address], [place] [address] Subjective: * Chief Complaints: * Medical History: None of these apply Anxiety Depression Special assistance needed for care: None * 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 D o you have any taoism or culture customs that your provider should [...]
[2025-06-04 04:59] VITALS: BMI 33.3
--- OUTSIDE RECORDS SUMMARY | 2025-06-04 04:59 | XMS_ITS | Clinical Summary ---
Author Organization [facility] Address [address] [place] [address] Care Team Providers Care Hardscape Foreman Name Role Phone Provider, No Known Primary [...] pur e alcohol) rare use when not [place] Depression Scale Answer Date Recorded Retired [place] Depression Score 9 05/04/2018 Retired EPD Scale: [...] pulse or is breathing): Full Care Teams Hardscape Foreman Relationship Specialty Start Date End Date Provider, [place] [address] PCP - General 05/08/24
--- OUTSIDE RECORDS SUMMARY | 2025-06-04 05:00 | XMS_ITS | Patient Health Record ---
Author Organization [facility] Address [address] [facility] [facility] [place] [address] Care Team Providers Care Technical Sales Associate Name Role Phone Salud Kenny Unavailable [phone] Allergies Allergen (clinical drug ingredient) Drug/Non Drug [...] <0.05 Lab speci mens received at a [facility].?See result details for the performing location [...] No Section Notes: Do you have any taoist or culture customs that your provider should [...] an emergency?: No Do you have any taoist or culture customs that your provider should [...] Encounters Encounter Location Date Provider Diagnosis [facility] [address] [facility] [address] [place] [address] 06/18/2024 Salud Kenny Plan Of Treatment No Information Insurance Providers Payer Name Payer Address Payer Phone Subscriber Number Group Number Insured Name Patient Relationship to Insured Coverage Start Date Coverage End Date Kelly HEREDIAO [address] [place] [address] [id number] Kelly Hankins Self - patient is the insured Medical (General) History Medical History History ICD Code Anxiety Depression Surgical History Surgery Date(Month/Year) Bilateral Tubal ligation Bilateral Tubal Reversal
[2025-06-04 05:19] VITALS: BP 127/86; PULSE 82; RESP 18; TEMP 36.9; O2SAT 98; BMI 33.4
[2025-06-04] MEDS: LACTATED RINGERS 1000ML 1,000 ML 250 ML IV (05:30)
[2025-06-04 05:39] LABS: Microscopic, Urine URINE MICROSCOPIC (MICROSCOPIC)
[2025-06-04 05:45] LABS: Hematocrit 29.2 % (37.0-47.0); Hemoglobin 10.2 g/dL (12.2-16.2); Immature Granulocytes % 1.2 %; Mean Corpuscular HGB Conc 34.9 g/dL (31.8-35.4); Mean Corpuscular Hemoglobin 29.4 pg (27.0-31.2); Mean Corpuscular Volume 84.1 fl (81-99); Nucleated Red Blood Cells % 0 %; Platelet Count 265 K/mm3 (142-424); Red Blood Count 3.47 M/mm3 (4.20-5.40); Red Cell Distribution Width-SD 39.4 fL; White Blood Count 9.4 K/mm3 (4.8-10.8)
[2025-06-04 05:46] LABS: Bilirubin,Urine Negative (Negative); Color,Urine YELLOW (Yellow); Glucose,Urine (UA) Negative (Negative); Ketones,Urine Negative (Negative); Leukocyte Esterase,Urine 1+ (Negative); PH,Urine 6.0 (5.0-8.5); Protein,Urine TRACE (Negative); Specific Gravity, Urine >= 1.030 (1.005-1.030); Urobilinogen,Urine 0.2 EU/dl (0.2)
[2025-06-04 05:49] LABS: Chloride 111 mmol/L (98-107); Potassium 3.9 mmoL/L (3.5-5.1); Sodium 135 mmol/L (136-145)
[2025-06-04 05:52] LABS: Anion Gap 7.9 mEq/L (5-15); Blood Urea Nitrogen 8 mg/dl (7-17); Calcium 9.3 mg/dl (8.4-10.2); Carbon Dioxide 20 mmol/L (22.0-30.0); Creatinine Clearance Estimated 240 mL/min (50-200); Creatinine,Serum 0.50 mg/dl (0.52-1.04); Estimated Glomerular Filt Rate 140 ml/min (>60); GFR (African American) 170 ML/MIN (>60); Glucose 89 mg/dl (74-100)
[2025-06-04 05:57] LABS: Bacteria,Urine 3+ /lpf; Squamous Epithelial Cell,Urine 20-50 #/hpf (0-5); WBC,Urine 50-100 #/hpf (0-3)
[2025-06-04 06:03] VITALS: BP 127/86; PULSE 82; RESP 18; TEMP 36.9; O2SAT 98
[2025-06-04] MEDS: CEFAZOLIN 2GM VIAL 2 GM (07:23)
--- NOTE | 2025-06-04 07:31 | EXP.OB.APHP ---
OB - H&P: HPI Antepartum History of Present Illness Chief complaint: Scheduled repeat History of present illness: Mrs Gosia Hankins is a 34 yo at 39w3d who presents to [facility] for scheduled . She has had good care. History of x 1. complicated by AMA, generalized anxiety disorder and Bipolar disorder. History of Present Criteria for establishing EDC:: LMP confirmed by 1st trimester US care: good care Ultrasounds: normal mid trimester US Obstetrical complications: previous Medical complications: none Labs Blood type: B (+) positive Rubella: immune RPR/VDRL: nonreactive HBsAG: negative PFSH PFSH Disclaimer: The information contained in this section may have been updated after the patient was seen, as this information can be updated by other users. Medical History Acid reflux Screening for genetic disease carrier status + for SMA carrier AMA (advanced maternal age) multigravida 35+ Polycystic ovaries Depression Family history of breast cancer mother diagnosed at age 40 maternal grandmother and maternal 1st cousin paternal aunt Attention deficit disorder (ADD) in adult Bipolar II disorder Surgical History History of x 1 History of reversal of tubal ligation Family History Grandmother Cancer maternal-breast Mother Cancer breast Social History (Updated 06/04/25 @ 05:22 by Edilia Frey RN) Smoking Status: Never smoker alcohol intake: never substance use type: denies use current occupational status: employed Travel in the last 8 weeks?: None number of children: 2 Have you lived/traveled outside US in past 30 days?: No Contact w/someone who lives/traveled outside US past 30 days?: No Exposure to someone with infectious disease in past 14 days?: No Do you have a fever (greater than 100.4 F or 38 C)?: No Have you tested positive for COVID-19?: No Exposed to someone with COVID-19 in past 14 days?: No Do you have a sore throat?: No Do you have a cough?: No Do you have any weakness?: No Are you experiencing any nausea/vomitting?: No Do you have any diarrhea?: No Are you experiencing any unusual bleeding?: No Do you have any muscle aches/pain?: No Do you have any abdominal pain?: No Are you experiencing loss of taste or smell?: No Other Medical History Have you received the Flu Vaccine for this season: No Have you received the Pneumonia Vaccine: No Review of Systems Review of Systems Review of systems:: pertinent systems reviewed and negative unless documented below Meds Home Medications and Allergies Home Medications ?Medication ?Instructions ?Recorded ?Confirmed ?Type vits no.126-ferrous fum 1 tab PO DAILY 02/04/25 06/04/25 History 28 mg iron-folic acid 800 mcg tablet (Classic ) hydroxyzine pamoate 25 mg capsule 25 mg PO HS #30 caps 02/26/25 06/04/25 Rx vortioxetine 10 mg tablet 10 mg PO DAILY #30 tabs 05/16/25 06/04/25 Rx (Trintellix) New Prescriptions to Start Prescriptions: Allergies Allergy/AdvReac Type Severity Reaction Status Date / Time Sulfa (Sulfonamide Allergy Rash Verified 06/04/25 05:17 Antibiotics) sulfamethoxazole (From Allergy Rash Verified 06/04/25 05:17 Bactrim) trimethoprim (From Bactrim) Allergy Rash Verified 06/04/25 05:17 OB - H&P: Exam Physical Exam Vital signs: Temp Pulse Resp BP Pulse Ox O2 Del Method 98.5 F 82 18 127/86 98 Room Air 06/04/25 06:03 06/04/25 06:03 06/04/25 06:03 06/04/25 06:03 06/04/25 06:03 06/04/25 06:03 Constitutional no acute distress and cooperative Routine HEENT Exam Head: Present normocephalic and atraumatic Eye: Absent conjunctivae pink ENT: Present mucous membranes moist Routine Neck Exam Present full ROM Routine Respiratory Exam Present CTA bilaterally and normal respiratory effort Routine Cardiovascular Exam Present RRR Routine Abdominal Exam Present soft (Gravid); Absent tenderness Routine Rectal Exam Patient deferred: visual exam Routine Exam External: Present normal urethra appearance; Absent erythema, swelling, tenderness, lesions or vulvar erythema Routine Extremities Exam Present full ROM; Absent edema or calf tenderness Routine Neurological Exam Present alert, moving all extremities and normal speech Routine Psychiatric Exam Present normal affect and cooperative OB - Results Labs Labs: Short CBC 06/04/25 Range/Units 05:23 WBC 9.4 (4.8-10.8) K/mm3 Hgb 10.2 L (12.2-16.2) g/dL Hct 29.2 L (37.0-47.0) % Plt Count 265 (142-424) K/mm3 BMP 06/04/25 05:23 Sodium 135 L Potassium 3.9 Chloride 111 H Carbon Dioxide 20 L BUN 8 Creatinine 0.50 L Glucose 89 Calcium 9.3 Urine 06/04/25 Range/Units 05:03 Urine Color Yellow (Yellow) Urine Appearance Cloudy (Clear) Urine pH 6.0 (5.0-8.5) Ur Specific [place] >= 1.030 (1.005-1.030) Urine Protein Trace (Negative) Urine Glucose (UA) Negative (Negative) OB - A/P Antepartum (1) AMA (advanced maternal age) multigravida 35+: Status: Acute (2) CELSO (generalized anxiety disorder): Status: Acute (3) Bipolar II disorder: Status: Acute (4) History of : Problem details: x 1 Status: Acute Additional Plan Additional Information:: Admit to [facility] for scheduled repeat Reviewed risks, benefits, alternatives, expectations and possible complications. All questions addressed and answered. She voiced understanding of risks and possible complications. consent form signed Proceed with scheduled repeat
[2025-06-04] MEDS: 0.9 % SODIUM CHLORIDE 100 ML 50 ML IV (07:52)
--- NOTE | 2025-06-04 08:16 | HMH.PHAINT1 ---
Pharmacy Intervention Comments: MEDICATION RECONCILIATION COMPLETED ON PATIENT USING EXTERNAL FILL HISTORY FROM PHARMACY. -GUILLERMINA LOONEY, BRODIED
--- NOTE | 2025-06-04 08:50 | EXP.OP.NOTE ---
Date of procedure: 06/04/25 Pre-op Diagnosis:: 1. IUP at 39w3d 2. Advanced maternal age 3. History of x 1 4. Generalized anxiety disorder 5. Bipolar disorder Post-op Diagnosis:: 1. IUP at 39w3d 2. Advanced maternal age 3. History of x 1 4. Generalized anxiety disorder 5. Bipolar disorder Procedure performed:: Repeat Low Transverse Section Surgeon:: Hazel Antoine DO Electronic Sales And Service Technician(s):: Chris Wolf MD ENVIRONMENTAL INTERN:: Leroy Mathias Anesthesia: spinal Estimated blood loss (mL): 600 Clinical Note:: Mrs Gosia Hankins is a 34 yo at 39w3d who presents to [facility] for scheduled . She has had good care. History of x 1. complicated by AMA, generalized anxiety disorder and Bipolar disorder. She has been taking vortioxetine 10 mg PO daily. Operative findings:: 1. Live female baby, Cinthia, weighing 7 lb 9 oz. AGPARS 8 (1 min), 9 (5 min) 2. Grossly normal appearing uterus, bilateral fallopian tubes and ovaries Operative note:: The risks, benefits and alternatives of the procedure were reviewed with the patient. Informed consent was obtained. Patient was taken to the operating room where spinal anesthesia was placed. The patient received 2 grams of Ancef preoperatively. Patient was placed in dorsal supine position with a leftward tilt. SCDs in place. Hathaway catheter was inserted and was draining clear urine prior to the start of the procedure. heart tones were obtained. Patient was then prepped and draped in normal sterile fashion. Allis clamp test was performed to ensure adequate anesthesia. A Pfannenstiel skin incision was made 2 cm above pubic symphysis along prior Pfannenstiel incision scar. This was carried through to underlying layer of fascia. Fascia was incised in midline, extended laterally with Izquierdo scissors. Superior aspect of fascial incision was grasped with two Bob clamps, elevated up, and rectus muscle dissected off bluntly and sharply with Izquierdo scissors. The retcus muscle was then in the midline and the peritoneum was entered bluntly with a digit. Peritoneal incision was then extended superiorly and inferiorly with good visualization of the bladder. Kyle retractor was inserted. The lower uterine segment was incised in a transverse fashion. Clear amniotic fluid was noted. Head was delivered without difficulty. Remainder of body was delivered without difficulty. Mouth and nares were bulb suctioned. Spontaneous cry was noted. Delayed cord clamping was performed for 60 seconds. The umbilical cord was clamped and cut. The was handed to awaiting pediatric staff in stable condition. Dr. Fox was present. Apgars were 8(1 min), 9(5 min). Cord blood was obtained. Gentle traction on the umbilical cord and uterine fundal massage delivered the placenta. Placenta was intact. Placenta will be sent to pathology for review. Uterus was cleared of all clots and debris with a moist laparotomy sponge. Corners of the uterine incision were grasped with Allis clamps. The uterine incision was reapproximated with # 1 Vicryl suture in a running, locked stitch. Second layer of the same stitch was used to imbricate the incision. Vesicouterine peritoneum was reapproximated in a running locked stitch with 2-0 Vicryl suture. Hemostasis was noted. Posterior cul-de-sac was cleaned with moist laparotomy sponge. Gutters cleared of all clots and debris with a moist laparotomy sponge. Reinspection of the lower uterine segment demonstrated small amount of oozing. Hemostasis was noted. At this point all instruments and sponges were removed from the pelvis.? The peritoneum was grasped with Marya clamps x 3. The peritoneum was reapproximated with 0 Vicryl suture in a running stitch. The corners of the fascia were grasped with Bob clamps, and the fascia was reapproximated with two # 1 Vicryl suture overlapped to the right of midline. The subcutaneous tissue was reapproximated with 3-0 Vicryl. Subcutaneous tissue was irrigated with clear return of fluids. The skin was reapproximated with Insorb milena. Telfa was placed over closed Pfannenstiel skin incision. At the end of the procedure, the uterus was firm with minimal vaginal bleeding. Patient tolerated the procedure well. Instrument, sponges and needle counts were correct x 2. Mom and baby were transported to recovery room in stable condition. Condition: stable Disposition: floor Specimens:: 1. Cord blood Complications:: None
[2025-06-04 08:53] VITALS: BP 128/78; PULSE 76; RESP 16; TEMP 36.7; O2SAT 99
[2025-06-04 09:03] VITALS: BP 126/73; PULSE 75; RESP 16; TEMP 36.7; O2SAT 99
[2025-06-04 09:13] VITALS: BP 131/81; PULSE 74; RESP 16; TEMP 36.7; O2SAT 99
[2025-06-04 09:23] VITALS: BP 124/72; PULSE 74; RESP 16; TEMP 36.7; O2SAT 99
[2025-06-04] MEDS: ACETAMINOPHEN 500MG TAB 1000 MG PO ×3 (09:43→23:24)
[2025-06-04] MEDS: OXYTOCIN/RINGERS LACTATE 30 UNITS/500 ML BAG 999 UNITS IV (09:44)
[2025-06-04] MEDS: SIMETHICONE 80MG CHEWABLE TABLET 160 MG PO ×3 (12:00→23:32)
[2025-06-04] MEDS: OXYCODONE 5MG IMMEDIATE RELEASE TABLET 5 MG PO ×3 (12:02→20:27)
[2025-06-04 13:54] LABS: Microscopic,Cath URINE MICROSCOPIC (MICROSCOPIC)
[2025-06-04 13:56] LABS: Appearance,Urine/Cath CLEAR (Clear); Bilirubin,Cath Negative (Negative); Blood, Urine/Cath Negative (Negative); Color,Urine/Cath YELLOW (Yellow); Glucose,Urine/Cath (UA) Negative (Negative); Ketones,Urine/Cath Negative (Negative); Leukocyte Esterase,Cath Negative (Negative); Nitrate,Cath Negative (Negative); PH,Urine/Cath 6.5 (5.0-8.5); Protein,Urine/Cath Negative (Negative); Specific Gravity, Urine/Cath 1.020 (1.005-1.030); Urobilinogen,Cath 0.2 EU/dl (0.2)
[2025-06-04 14:13] LABS: Bacteria,Urine/Cath TRACE /lpf
[2025-06-04 14:14] LABS: WBC,Urine/Cath Occasional #/hpf (0-3)
[2025-06-04] MEDS: KETOROLAC 30MG/ML VIAL 30 MG IV ×2 (14:41→20:27)
[2025-06-04 15:21] LABS: RPR W/RFX Titers Nonreactive (Nonreactive)
[2025-06-04] MEDS: SENNA 8.6MG TABLET 8.6 MG PO (19:18)
[2025-06-04] MEDS: LANOLIN CREAM 40GM TP (19:18)
[2025-06-04] MEDS: PRENATAL MULTIVITAMIN W/IRON 1 EACH PO (19:19)
[2025-06-05] MEDS: SENNA 8.6MG TABLET 8.6 MG PO (03:50)
[2025-06-05] MEDS: SIMETHICONE 80MG CHEWABLE TABLET 160 MG PO (03:50)
[2025-06-05] MEDS: KETOROLAC 30MG/ML VIAL 30 MG IV (03:51)
[2025-06-05 06:14] LABS: Hematocrit 24.7 % (37.0-47.0); Hemoglobin 8.2 g/dL (12.2-16.2); Immature Granulocytes % 0.9 %; Mean Corpuscular HGB Conc 33.2 g/dL (31.8-35.4); Mean Corpuscular Hemoglobin 28.4 pg (27.0-31.2); Mean Corpuscular Volume 85.5 fl (81-99); Nucleated Red Blood Cells % 0 %; Platelet Count 207 K/mm3 (142-424); Red Blood Count 2.89 M/mm3 (4.20-5.40); Red Cell Distribution Width-SD 40.2 fL; White Blood Count 13.9 K/mm3 (4.8-10.8)
--- NOTE | 2025-06-05 07:04 | P.PNANES_ITS ---
[facility] Disclaimer: The information contained in this section may have been updated after the patient was seen, as this information can be updated by other users. Medical History Acid reflux Screening for genetic disease carrier status + for SMA carrier AMA (advanced maternal age) multigravida 35+ Polycystic ovaries Depression Family history of breast cancer mother diagnosed at age 40 maternal grandmother and maternal 1st cousin paternal aunt Attention deficit disorder (ADD) in adult Bipolar II disorder Surgical History History of x 1 History of reversal of tubal ligation Family History Grandmother Cancer maternal-breast Mother Cancer breast Social History (Updated 06/04/25 @ 05:22 by Edilia Frey RN) Smoking Status: Never smoker alcohol intake: never substance use type: denies use current occupational status: employed Travel in the last 8 weeks?: None number of children: 2 Have you lived/traveled outside US in past 30 days?: No Contact w/someone who lives/traveled outside US past 30 days?: No Exposure to someone with infectious disease in past 14 days?: No Do you have a fever (greater than 100.4 F or 38 C)?: No Have you tested positive for COVID-19?: No Exposed to someone with COVID-19 in past 14 days?: No Do you have a sore throat?: No Do you have a cough?: No Do you have any weakness?: No Are you experiencing any nausea/vomitting?: No Do you have any diarrhea?: No Are you experiencing any unusual bleeding?: No Do you have any muscle aches/pain?: No Do you have any abdominal pain?: No Are you experiencing loss of taste or smell?: No [facility] Anesthesia Checklist Patient Identification Patient Identification: Arm Band and Verbal (Name & ) Structural Data Admitted From: Home Planned Operative Procedure/s: Consent for Planned Operative Procedure(s) Verified: Yes Verified Documents: Surgical Consent NPO Status Verified Time NPO: 00:00 Additional verifications Patient : Yes Airway Assessment Mallampati Score:: Class II C-Spine Mobility Assessed: Yes TMJ Mobility Assessed: Yes Dentition: Good Dentition Neurological Assessment Level of Consciousness: Awake, Alert and Appropriate Hx Seizures: No Numbness or tingling in extremities: No Anesthesia Plan Anesthesia Risk discussed: Yes Anesthesia Plan: Verified ASA Class: II Anesthesia Type: Spinal
--- NOTE | 2025-06-05 07:06 | P.PNANES_ITS ---
[facility] Anesthesia Record Part I Anesthesia Record I Intake, IV Amount: 1,200 Hydration: Adequate Estimated blood loss (mL): 600 Urine output (mL): 100 Blood Products used (#): none Blood Pressure: 124/78 SaO2: 98 Pulse Rate: 82 Airway Patency: Patent Respiratory Rate: 14 Temperature: 98.1 F Patient is:: Awake and Stable Stable to PACU at:: 08:53 Comments:: For PACU on 06/04/2025
[2025-06-05 07:07] VITALS: BP 124/78; PULSE 82; RESP 14; TEMP 36.7; O2SAT 98
[2025-06-05 08:10] VITALS: BP 125/72; PULSE 75; RESP 18; TEMP 36.9; O2SAT 99
--- NOTE | 2025-06-05 09:12 | EXP.ACUTE.PN ---
Subjective *Date: 06/05/25 *Time: 09:12 Interval history: She seems to be doing well this morning. Her hemoglobin is 8.2 but she is otherwise asymptomatic. She started low at 10.2. She is breast-feeding. Her lochia is normal. Her pain is well-controlled with the T AP block. Medical Exam Vital signs and Labs for Last 24 Hours: Vital Signs Temp Pulse Pulse Resp BP BP Pulse Ox 06/05/25 08:10 98.5 F 75 18 125/72 99 06/05/25 07:07 98.1 F 82 14 124/78 06/04/25 09:23 98.1 F 74 16 124/72 99 06/04/25 09:13 98.1 F 74 16 131/81 99 O2 Del Method 06/05/25 08:10 Room Air 06/05/25 07:07 06/04/25 09:23 Nasal Cannula 06/04/25 09:13 Nasal Cannula Intake and Output 06/04/25 06/05/25 06/05/25 19:59 03:59 11:59 Intake Total 1200 / 1200 Balance 1200 / 1200 Intake: Intake, Total IV Amount 1200 / 1200 Laboratory Results - last 24 hr 06/04/25 05:23: RPR w/Rflx to Titer Nonreactive 06/04/25 07:30: Urine Color Yellow, Urine Appearance Clear, Urine pH 6.5, Ur Specific [place] 1.020, Urine Protein Negative, Urine Glucose (UA) Negative, Urine Ketones Negative, Urine Blood Negative, Urine Nitrate Negative, Urine Bilirubin Negative, Urine Urobilinogen 0.2, Ur Leukocyte Esterase Negative, Urine WBC Occasional, Ur Squamous Epith Cells 3-5, Urine Bacteria Trace 06/05/25 05:31: WBC 13.9 H D, RBC 2.89 L, Hgb 8.2 L, Hct 24.7 L, MCV 85.5, MCH 28.4, MCHC 33.2, RDW 13.0, Plt Count 207, MPV 10.4, Neut % (Auto) 68.7, Lymph % (Auto) 21.8, [place] % (Auto) 7.8, Eos % (Auto) 0.6, Baso % (Auto) 0.2, Neut # (Auto) 9.5 H, Lymph # (Auto) 3.0, [place] # (Auto) 1.1 H, Eos # (Auto) 0.1, Baso # (Auto) 0.0 I & O for Labs for Last 24 Hours: Intake & Output 06/02/25 06/03/25 06/04/25 06/05/25 11:59 11:59 11:59 11:59 Intake Total 1200 / 1200 Balance 1200 / 1200 Weight 212 lb 15.994 oz Head: Present atraumatic Neck: Present normal inspection Respiratory: Present normal respiratory effort; Absent accessory muscle use Assessment and Plan *Assessment and plan (1) History of : Problem Comment: x 1 Status: Acute Category: Surgical Code(s): Z98.891 - History of uterine scar from previous surgery (2) AMA (advanced maternal age) multigravida 35+: Status: Acute Qualifiers: Trimester: first trimester Qualified Code(s): O09.521 - Supervision of elderly multigravida, first trimester Category: Medical Code(s): O09.529 - Supervision of elderly multigravida, unspecified trimester (3) Delivery by section of full-term infant: Status: Acute Category: Medical Code(s): O82 - Encounter for delivery without indication (4) Anemia of mother in , condition: Status: Acute Category: Medical Code(s): O90.81 - Anemia of the puerperium Plan 1. She is doing very well this morning and we will plan to send her home tomorrow. She may want to go home later this evening. 2. She is anemic and we will encourage her to take iron tablets when she goes home. 3. Her pain is well-controlled and she is not taking any narcotics. 4. She is breast-feeding.
[2025-06-05] MEDS: IBUPROFEN 400 MG TABLET 800 MG PO ×2 (09:41→16:25)
[2025-06-05] MEDS: ACETAMINOPHEN 500MG TAB 1000 MG PO ×2 (09:41→16:25)
--- NOTE | 2025-06-05 17:06 | EXP.DC.SUM ---
General Admission date:: 06/04/25 Discharge date: 06/05/25 HPI HPI HPI: Mrs Gosia Hankins is a 34 yo at 39w3d who presents to [facility] for scheduled . She has had good care. History of x 1. complicated by AMA, generalized anxiety disorder and Bipolar disorder. Hospital Course Hospital Course Hospital Course: On June 04, 2025 she underwent a repeat lower segment transverse section. Mrs Gosia Hankins is a 34 yo at 39w3d who presents to [facility] for scheduled . She has had good care. History of x 1. complicated by AMA, generalized anxiety disorder and Bipolar disorder. She has been taking vortioxetine 10 mg PO daily. Operative findings:: 1. Live female baby, Cinthia, weighing 7 lb 9 oz. AGPARS 8 (1 min), 9 (5 min) 2. Grossly normal appearing uterus, bilateral fallopian tubes and ovaries She has done well postoperatively and has remained afebrile throughout her hospitalization. She is eating and drinking and ambulating. She is breast-feeding. Her pain is well-controlled with the tap block and she is not taking any narcotics. Postoperative hemoglobin is slightly low at 8.2 preoperative it was just 10.2. We will send her home with iron tablets. She is discharged home to follow-up with Dr. Antoine in approximately 2 weeks time. She was given a prescription for iron tablets as well as oxycodone in case she needs it for pain. She was given the usual instructions with respect to limiting her activity, driving and sexual activity. Exam Data for Last 24 hours Vital signs and Labs for Last 24 Hours: Temp Pulse Resp BP Pulse Ox O2 Del Method 98.5 F 75 18 125/72 99 Room Air 06/05/25 08:10 06/05/25 08:10 06/05/25 08:10 06/05/25 08:10 06/05/25 08:10 06/05/25 08:10 Laboratory Results - last 24 hr 06/05/25 05:31: WBC 13.9 H D, RBC 2.89 L, Hgb 8.2 L, Hct 24.7 L, MCV 85.5, MCH 28.4, MCHC 33.2, RDW 13.0, Plt Count 207, MPV 10.4, Neut % (Auto) 68.7, Lymph % (Auto) 21.8, [place] % (Auto) 7.8, Eos % (Auto) 0.6, Baso % (Auto) 0.2, Neut # (Auto) 9.5 H, Lymph # (Auto) 3.0, [place] # (Auto) 1.1 H, Eos # (Auto) 0.1, Baso # (Auto) 0.0 I & O for Last 24 hours: Intake & Output 06/03/25 06/04/25 06/05/25 06/06/25 11:59 11:59 11:59 11:59 Intake Total 1200 / 1200 Balance 1200 / 1200 Weight 212 lb 15.994 oz Microbiology Reports for the Last 24 Hours: Microbiology 06/04/25 05:03 Urine,Clean Catch Urine Culture - Final No growth. Constitutional Constitutional: no acute distress *Routine HEENT Exam Head: Present normocephalic *Routine Neck Exam Neck: Present full ROM *Routine Respiratory Exam Respiratory: Present normal respiratory effort; Absent accessory muscle use *Routine Abdominal Exam Abdominal: Present soft; Absent distended Results Data Completed and Pending Labs on day of discharge: Labs from last 24 hours 06/05/25 05:31 WBC 13.9 H D RBC 2.89 L Hgb 8.2 L Hct 24.7 L MCV 85.5 MCH 28.4 MCHC 33.2 RDW 13.0 Plt Count 207 MPV 10.4 Neut % (Auto) 68.7 Lymph % (Auto) 21.8 [place] % (Auto) 7.8 Eos % (Auto) 0.6 Baso % (Auto) 0.2 Neut # (Auto) 9.5 H Lymph # (Auto) 3.0 [place] # (Auto) 1.1 H Eos # (Auto) 0.1 Baso # (Auto) 0.0 DS: Diagnosis Discharge Diagnosis (1) History of : Status: Acute Code(s): Z98.891 - History of uterine scar from previous surgery Problem details: x 1 (2) AMA (advanced maternal age) multigravida 35+: Status: Acute Code(s): O09.529 - Supervision of elderly multigravida, unspecified trimester Qualifiers: Trimester: first trimester Qualified Code(s): O09.521 - Supervision of elderly multigravida, first trimester (3) Delivery by section of full-term : Status: Acute Code(s): O82 - Encounter for delivery without indication (4) Anemia of mother in , condition: Status: Acute Code(s): O90.81 - Anemia of the puerperium Meds Home Medications and Allergies Home Medications ?Medication ?Instructions ?Recorded ?Confirmed ?Type vits no.126-ferrous fum 1 tab PO DAILY 02/04/25 06/04/25 History 28 mg iron-folic acid 800 mcg tablet (Classic ) vortioxetine 10 mg tablet 10 mg PO DAILY #30 tabs 05/16/25 06/04/25 Rx (Trintellix) ferrous sulfate 325 mg (65 mg 325 mg PO BID #60 tabs 06/05/25 Rx iron) tablet (Iron (ferrous sulfate)) oxycodone-acetaminophen 5 mg-325 1 tab PO Q6H PRN pain #8 tabs 06/05/25 Rx mg tablet New Prescriptions to Start Prescriptions: ferrous sulfate [Iron (ferrous sulfate)] Chris Wolf oxycodone-acetaminophen Chris Wolf Allergies Allergy/AdvReac Type Severity Reaction Status Date / Time Sulfa (Sulfonamide Allergy Rash Verified 06/04/25 05:17 Antibiotics) sulfamethoxazole (From Allergy Rash Verified 06/04/25 05:17 Bactrim) trimethoprim (From Bactrim) Allergy Rash Verified 06/04/25 05:17 Discharge Plan Disposition Patient Disposition: Home, Self-Care Discharge Order Discharge Orders: Discharge Order (Routine); Ordered 06/05/25 Ordered By: Chris Wolf Follow up Plan Follow up with: Hazel Antoine DO [Staff Physician, AUTOMOTIVE FUEL INJECTION SERVICER] - 06/19/25 1:30 pm Prescriptions/Medication Reconciliation: New ferrous sulfate [Iron (ferrous sulfate)] 325 mg (65 mg iron) Tablet 325 mg PO BID Qty: 60 1RF oxycodone-acetaminophen 5-325 mg tablet 1 tab PO Q6H PRN (Reason: pain) Qty: 8 0RF Continued Trintellix 10 mg tablet 10 mg PO DAILY Qty: 30 2RF Classic 28 mg iron- 800 mcg tablet 1 tab PO DAILY Problem Reconciliation Problems Reviewed?: Yes Patient Discharge Instructions ACTIVITY: No heavy lifting DIET: continue same diet Additional Instructions: *No heavy lifting* Nothing more than 2 gallons of milk or your baby in its car seat. *No strenuous activity* *Nothing in the vagina for 6 weeks* Patient Instructions: Depression, Hemorrhage, DI for , DI for Pre-eclampsia, [facility] Post Discharge Instructions Print Language: Czech Providers Primary Care Provider: Provider,Referral Admit Provider: Hazel Antoine Attending Provider: Hazel Antoine
== END 2025-06-05 18:10 | disposition home or self-care (01) | DRG 787 ==
PROVIDERS: Admitting Provider Obstetrics & Gynecology; Visit Provider Obstetrics & Gynecology
PROC: 10D00Z1 Extraction of Products of Conception, Low, Open Approach (ICD-10-PCS; CPT 59514; principal; 2025-06-04 07:30)
DX: O34.211 Maternal care for low transverse scar from previous cesarean delivery (principal); F31.81 Bipolar II disorder; O99.344 Other mental disorders complicating childbirth; Z3A.39 39 weeks gestation of pregnancy; Z37.0 Single live birth; F41.1 Generalized anxiety disorder; O90.81 Anemia of the puerperium; Z88.2 Allergy status to sulfonamides; Z23 Encounter for immunization
CPT/HCPCS: 36415; 51702; 59025; 80048; 81001; 85025; 86592; 86850; 87086; 94761; 96374; J0665; J0666; J0690; J1100; J1885; J2003; J2371; J2405; J2590; J3010; J7120

== ENCOUNTER → 2025-07-23 14:45 | Outpatient (CLI) | payer BC, SELFPAY ==
--- OUTSIDE RECORDS SUMMARY | 2024-05-01 10:25 | XMS_ITS ---
Author Organization [facility] Address [address] [place] [address] Care Team Providers Care Clinical Account Specialist Name Role Phone Salud Kenny Unavailable [phone] Allergies Allergen (clinical drug ingredient) Drug/Non Drug [...] No Section Notes: Do you have any samaritan or culture customs that your provider should [...] No Encounters Encounter Location Date Provider Diagnosis [facility] [address] [place] [address] 05/01/2024 Salud Kenny Plan Of Treatment No Information Progress Notes * Mindy HANKINS:[birth year] (34 yo F)Acc No.[id number]:05/01/2024 Patient: Cy JACKSONsha :1990 A ge:33 Y S ex:Female Address:[address] [place] [address], [place] [address] Subjective: * Chief Complaints: * Medical History: None of these apply Anxiety Depression Special assistance needed for care: None * 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 Spontaneous 1 Ectopics 1 Living 2 AB. Elective 0 P regnancy # 1: 0 12/05/2014 F [...] History Verified. D o you have any samaritan or culture customs that your provider should [...]
--- OUTSIDE RECORDS SUMMARY | 2025-07-23 14:50 | XMS_ITS | Patient Health Record ---
Author Organization [facility] [place] Address [address] [place] [address] Care Team Providers Care Test Analyst Name Role Phone Salud Kenny Unavailable [phone] Allergies Allergen (clinical drug ingredient) Drug/Non Drug Allergy documented on EMR Reaction Allergy Type Onset Date Status Substance with sulfonamide structure and antibacterial mechanism of action (substance) Sulfa (uncoded) Unknown Allergy Active Reason For Referral No Information Immunizations Vaccine Route Administration Date Status Comme nts Influenza, seasonal Unknown 10/31/2022 Administered 3 SARS-COV-2 Unknown 10/31/2019 Administered 2019 Social History Sex Assigned At : Social History Observation Description Sex Assigned At Female Social History Additional Details Category Social Info Options Details Miscellaneous: Domestic violence: No Section Notes: Do you have any oriental orthodox or culture customs that your provider should [...] an emergency?: No Do you have any oriental orthodox or culture customs that your provider should [...] in the event of an emergency?: No Plan Of Treatment No Information Insurance Providers Payer Name Payer Address Payer Phone Subscriber Number Group Number Insured Name Patient Relationship to Insured Coverage Start Date Coverage End Date Kelly HEREDIAO [address] [place] [address] [id number] Kelly Hankins Self - patient is the insured Medical (General) History Medical History History ICD Code Anxiety Depression Surgical History Surgery Date(Month/Year) Bilateral Tubal ligation Bilateral Tubal Reversal
--- OUTSIDE RECORDS SUMMARY | 2025-07-23 14:50 | XMS_ITS | Clinical Summary ---
Author Organization [facility] Address [address] [place] [address] Care Team Providers Care Drive Thru Order Taker Name Role Phone Provider, No Known Primary [...] pur e alcohol) rare use when not [place] Depression Scale Answer Date Recorded Retired [place] Depression Score 9 05/04/2018 Retired EPD Scale: [...] Pelvic an d Breast Exam 04/16/2023 04/15/2022 INFLUENZA VACCINE 05/31/2025 Pneumococcal Vaccine 0-49 Aged Out No longer [...] pulse or is breathing): Full Care Teams Drive Thru Order Taker Relationship Specialty Start Date End Date Provider, No Known [place] [address] PCP - General 05/08/24
--- NOTE | 2025-07-23 15:17 | PC.NURSE ---
Patient here for sore nipples and flange sizing. Exam reveals red nipples/areolas and cuts on nipples from pumping. Pt reports bleeding from nipples. Denies any s/s of thrush in . Patient strictly pumping. Denies fever or any s/s of sickness. 24mm sized flanges. Phoned in Dr. Antoine for eval. Dr. Antoine is going to send in nystatin cream. POC went over with patient- use nystatin cream as prescribed, wash breast in mild soap 3-4 times daily, use silverettes, use hydrogel pads and air dry nipples. WIll re-evaulate patient Tuesday via phone triage. She v/u and is agreeable to this plan.
== END ==
LOC: OBOUT 14:46
PROVIDERS: Visit Provider Obstetrics & Gynecology
DX: Z39.1 Encounter for care and examination of lactating mother (principal)

== ENCOUNTER 2025-07-30 14:41 | Outpatient (CLI) | payer BC, SELFPAY ==
--- OUTSIDE RECORDS SUMMARY | 2024-05-01 10:25 | XMS_ITS ---
Author Organization [facility] Address [address] [place] [address] Care Team Providers Care Paper Mill Manager Name Role Phone Salud Kenny Unavailable [phone] Allergies Allergen (clinical drug ingredient) Drug/Non Drug Allergy documented on EMR Reaction Allergy Type Onset Date Status Substance with sulfonamide structure and antibacterial mechanism of action (substance) Sulfa (uncoded) Unknown Allergy Active None (uncoded) Unknown Allergy Activ e Social History Sex Assigned At : Social History Observation Description Sex Assigned At Female Social History Additional Details Category Social Info Options Details Miscellaneous: Domestic violence: No Section Notes: Do you have any restorationism or culture customs that your provider should know about?: No Do you now or have you ever smoked or used tobacco products?: No Have you ever used any recreational drugs?: No Have you had a drink containing alcohol in the last year?: Yes How often did you have a drink containing alcohol in the last year?: Less than monthly Would you object to blood products in the event of an emergency?: No Encounters Encounter Location Date Provider Diagnosis [facility] [address] [place] [address] 05/01/2024 Salud Kenny Plan Of Treatment No Information Progress Notes * Mindy HANKINS:[birth year] (34 yo F)Acc No.[id number]:05/01/2024 Patient: Cy JACKSONsha :1990 A ge:33 Y S ex:Female Address:[address] [place] [address], [place] [id number] Subjective: * Chief Complaints: * Medical History: None of these apply Anxiety Depression Special assistance needed for care: None * [place]ra [place]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 Moderate A ge of Onset 1 0 L MP: J un 2023 D uration: 2 -7 days, 21-32 days A ssociated signs and symptoms of period: Y es, Bloating, Irritability, Mood swings C haracter of period: S evere pain/cramping S exual Activity/Contraception: C urrently sexually active Y es E paras sexually active Y es U rinary Incontinence: D o you ever leak urine when you cough, sneeze, laugh or exercise Y es D o you ever leak urine on the way to the bathroom or can't get to the bathroom on time N o D o you go to the bathroom frequently more than 7 times during the day and/or get up more than 2 times at night N o, No L ast Mammogram Date (Historical) 2 023 negative . B irth control (Historical) N othing. A bnormal pap smear (Historical) N o. S exually Transmitted Infections (STIs) N one. * OB History: P regnancy History (GPA) AB. Elective 0 Living 2 Ectopics 1 AB. Spontaneous 1 Premature 1 Full Term 1 Total Pregnancies 4 P regnancy # 1: 0 12/05/2014 F emale 3 5 weeks V agina E pidural.? P regnancy # 2: S ummer 2015 E ctopic . P regnancy # 3: D ec2015 M iscarriage . P regnancy # 4: 0 05/02/2018 M el 3 9 weeks E mergency C ord wrapped around neck . * Surgical History: Bilateral Tubal ligation Other: Bilateral Tubal Reversal * Family History: F amily History Verified.. Family History: Family history known Auto Immune Disorders: Mother Breast Cancer: Mother, Maternal Grandmother Diabetes: Mother, Maternal Grandfather Heart Disease: Maternal Grandfather Hypertension: Father Osteoporosis: Mother, Maternal Grandmother Stroke: Father Uterine Cancer: Maternal Grandmother. * Social History: M reganous: D omestic violence: No. S ocial History Verified. D o you have any restorationism or culture customs that your provider should know about?: No Do you now or have you ever smoked or used tobacco products?: No Have you ever used any recreational drugs?: No Have you had a drink containing alcohol in the last year?: Yes How often did you have a drink containing alcohol in the last year?: Less than monthly Would you object to blood products in the event of an emergency?: No. * Allergies: N one: Allergy - Criticality UnknownSulfa: Allergy - Criticality Unknown * * Date:
--- OUTSIDE RECORDS SUMMARY | 2025-07-30 14:43 | XMS_ITS | Patient Health Record ---
Author Organization [facility] Address [address] [facility] [address] [place] [address] Care Team Providers Care Steel Pourer Name Role Phone Salud Kenny Unavailable [phone] Allergies Allergen (clinical drug ingredient) Drug/Non Drug [...] No Section Notes: Do you have any quaker or culture customs that your provider should [...] an emergency?: No Do you have any quaker or culture customs that your provider should [...] Coverage End Date Kelly HEREDIAO [address] [place] [address] [id number] Kelly Hankins Self - patient is the insured Medical (General) History Medical History History ICD Code Anxiety Depression Surgical History Surgery Date(Month/Year) Bilateral Tubal ligation Bilateral Tubal Reversal
--- OUTSIDE RECORDS SUMMARY | 2025-07-30 14:43 | XMS_ITS | Clinical Summary ---
Author Organization [facility] Address [address] [place] [address] Care Team Providers Care Compliance Intern Name Role Phone Provider, No Known Primary [...] pur e alcohol) rare use when not [place] Depression Scale Answer Date Recorded Retired [place] Depression Score 9 05/04/2018 Retired EPD Scale: [...] pulse or is breathing): Full Care Teams Compliance Intern Relationship Specialty Start Date End Date Provider, No Known [facility] [place] [address] PCP - General 05/08/24
--- NOTE | 2025-07-30 15:00 | US_ITS ---
PROCEDURE INFORMATION: Exam: US Right Breast, Complete US Left Breast, Complete MG Radiologist Consultation Exam date and time: 07/30/2025 2:32 PM Age: 34 years old Clinical indication: Left breast pain, technologist note breast is very rounded appearance. Rule out abscess TECHNIQUE: Imaging protocol: Complete ultrasound of all four quadrants of the right breast and the retroareolar regions, including ultrasound of the axilla when performed. Complete ultrasound of all four quadrants of the left breast and the retroareolar regions, including ultrasound of the axilla when performed. COMPARISON: MG MM DIG SCREENING MAMM BI W/CAD 07/24/2024 4:34 PM FINDINGS: ULTRASOUND: Breast ultrasound findings: Ultrasound images of left including the retroareolar region, all 4 quadrants and the axilla. Suggestion of multiple hypoechoic ill-defined regions in all quadrants, most prominent in the lower outer quadrant at about 8 o'clock measuring up to about 2.3 cm and in the upper outer quadrant at 10 o'clock 3 cm from the nipple measuring 2.4 cm. No discrete abscess demonstrated. No skin thickening demonstrated. Abnormal appearing axillary lymph node with eccentrically thickened cortex up to 1.0 cm with increased Doppler flow, the echogenic central hilum is probably slightly displaced but otherwise maintained. Abnormal appearance with multiple hypoechoic areas and abnormal lymph node. This is not specific and may reflect a diffuse phlegmonous mastitis or atypical mastitis such as granulomatous mastitis and reactive lymph nodes secondary to an infection, for example. Correlate clinically, consider antibiotic treatment and follow-up sonography in 7 days. Alternatively, ultrasound-guided biopsy of one of the more dominant hypoechoic areas at 8 or 10 o'clock maybe helpful if clinically indicated. Follow-up to resolution as breast cancer is also in the differential, with family history noted on mammogram report from 07/24/2024. Consider adding breast cancer risk assessment may prove useful for further evaluation. Adding mammogram and/or MRI may be helpful as well. IMPRESSION: See comment ASSESSMENT: BI-RADS Category 3: Probably benign.
== END 2025-07-30 23:59 | disposition home or self-care (01) ==
LOC: RAD 14:41
PROVIDERS: PCP Obstetrics & Gynecology; Visit Provider Obstetrics & Gynecology
DX: O91.13 Abscess of breast associated with lactation (principal); O91.23 Nonpurulent mastitis associated with lactation; R92.8 Other abnormal and inconclusive findings on diagnostic imaging of breast
CPT/HCPCS: 76641

== ENCOUNTER 2025-09-23 18:25 | Emergency (ER) | payer BC, SELFPAY ==
[2025-09-23 18:30] VITALS: BP 138/97; PULSE 102; RESP 18; TEMP 37.4; O2SAT 99; BMI 28.1
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
--- OUTSIDE RECORDS SUMMARY | 2025-09-23 18:36 | XMS_ITS | Encounter Summary ---
Author Organization [facility] Address [address] [place] [address] Care Team Providers Care Operational Intelligence Analyst Name Role Phone Unavailable Primary Care Provider Unavailabl e Encounter Details Date Type Department Care Team (Late st Contact Info) Description 04/30/2022 Orders Only External Location [address] [place] [address] Dasia Escobar MD [address] [place] [address] Social History Tobacco Use Types Packs/Day Years Used Date Smoking Tobacco: Never Assessed Comments Unknown Sex and Gender Information Value Date Recorded Sex Assigned at Not on file Legal Sex Female 6:47 PM EDT Gender Identity Not on file Sexual Orientation Not on file documented as of this encounter Plan of Treatment Not on file documented as of this encounter Procedures Procedure Name Priority Date/Time Associated Diagnosis Comments MAMMOGRAPHY OUTSIDE IMAGES UPLOAD 04/30/2022 1:23 PM EDT documented in this encounter Results * Mammography Outside Images Upload (04/30/2022 1:23 PM EDT) Anatomical Region Laterality Modality Mammography 04/30/2022 1:23 PM EDT us Dasia Escobar MD IMG BI PROCEDURES Edited Result - Final documented in this encounter Visit Diagnoses Not on filedocumented in this encounter
--- OUTSIDE RECORDS SUMMARY | 2025-09-23 18:36 | XMS_ITS | Encounter Summary ---
Author Organization [facility] Address [address] [place] [address] Care Team Providers Care Electorate Officer Name Role Phone Unavailable Primary Care Provider Unavailabl e Encounter Details Date Type Department Care Team (Late st Contact Info) Description 07/30/2025 Orders Only External Location [address] [place] [address] Provider, External Social History Tobacco Use Types Packs/Day Years [...] Procedure Name Priority Date/Time Associated Diagnosis Comments US BREAST OUTSIDE IMAGES 07/30/2025 2:32 PM EDT documented in this encounter Results * US BREAST OUTSIDE IMAGES (07/30/2025 2:32 PM EDT) Anatomical Region Laterality Modality Breast Mammography 07/30/2025 2:32 PM EDT us External Provider IMG BI PROCEDURES Edited Resul t - Final documented in this encounter Visit Diagnoses Not on filedocumented in this encounter
--- OUTSIDE RECORDS SUMMARY | 2025-09-23 18:36 | XMS_ITS | Clinical Summary ---
Author Organization [facility] Address [address] [place] [address] Care Team Providers Care Batt Machine Operator Name Role Phone Provider, No Known Primary [...] pur e alcohol) rare use when not Moran Depression Scale Answer Date Recorded [place] Depression Scale Total 9 05/04/2018 The thought of harming myself has occurred to me . Unrecognized value 05/04/2018 Abuse Screen Answer Date Recorded [...] pulse or is breathing): Full Care Teams Batt Machine Operator Relationship Specialty Start Date End Date Provider, [place] [address] PCP - General 05/08/24
--- OUTSIDE RECORDS SUMMARY | 2025-09-23 18:36 | XMS_ITS | Clinical Summary ---
Author Organization [facility] Address [address] [place] [address] Care Team Providers Care Chief Medical Director Name Role Phone Unavailable Primary Care Provider Unavailabl e Encounters Date Type Department Care Team Description 07/30/2025 Orders Only External Location [address] [place] [address] Provider, External 07/30/2025 Orders Only External Location [address] [place] [address] Provider, External from Last 3 Months Social History Tobacco Use Types Packs/Day Years Used Date Smoking Tobacco: Never Assessed Comments Unknown Sex and Gender Information Value Date Recorded Sex Assigned at Not on file Legal Sex Female 6:47 PM EDT Gender Identity Not on file Sexual Orientation Not on file Plan of Treatment Health Maintenance Due Date Last Done Comments [facility]-Depression Screening 1989 [facility]-HIV Screening 1989 [facility]-Hepatitis C Screening 1989 [facility]-Infant/Child/Adol SDOH Screenings 1989 [facility]-Varicella Vaccines (1 of 2 - 13+ 2-dose series) 2002 [facility]- SDOH Screenings 2007 [facility]-Adult SDOH Screenings 2007 [facility]-Hepatitis B Vaccines (1 of 3 - 19+ 3-dose series) 2008 [facility]-Pap Smear 2010 HPV Vaccines (1 - 3-dose SCDM series) 2016 [facility]-Cervical Cancer Screening 2019 [facility]-HPV/Cotest 2019 DNT-HNITV-09 Vaccine (3 - 2024- season) 2025 12/19/2020, 11/21/2020 [facility]-Influenza Vaccine (#1) 2025 [facility]-DTaP,Tdap,and Td Vaccines (2 - Td or Tdap) 03/27/2035 03/27/2025 [facility]-Zoster Vaccines (1 of 2) 2039 [facility]-Hepatitis A Vaccines Aged Out 019, 01/17/2019 No longer eligible based on patient's age to complete this topic [facility]-HIB Vaccines Aged Out No longer e ligible based on patient's age to complete this topic [facility]-IPV Vaccines Aged Out No longer e ligible based on patient's age to complete this topic [facility]-Pneumococcal Vaccine: Pediatrics (0 to 5 Years) and At-Risk Patients (6 to 49 Years) Aged Out No longer eligible b ased on patient's age to complete this topic [facility]-Rotavirus Vaccines Aged Out No lo nger eligible based on patient's age to complete this topic Procedures Procedure Name Priority Date/Time Associated Diagnosis Comments US BREAST OUTSIDE IMAGES 07/30/2025 2:48 PM EDT US BREAST OUTSIDE IMAGES 07/30/2025 2:32 PM EDT from Last 3 Months Results * US BREAST OUTSIDE IMAGES (07/30/2025 2:48 PM EDT) Only the most recent of2 resultswithin the time period is included. Anatomical Region Laterality Modality Breast Mammography 07/30/2025 2:48 PM EDT us External Provider IMG BI PROCEDURES Edited Resul t - Final from Last 3 Months Insurance ANTH
--- OUTSIDE RECORDS SUMMARY | 2025-09-23 18:36 | XMS_ITS | Encounter Summary ---
Author Organization [facility] Address [address] [place] [address] Care Team Providers Care Scale Technician Name Role Phone Unavailable Primary Care Provider Unavailabl e Encounter Details Date Type Department Care Team (Late st Contact Info) Description 07/30/2025 Orders Only External Location [address] [place] [address] Provider, External Social History Tobacco Use Types [...] BREAST OUTSIDE IMAGES 07/30/2025 2:48 PM EDT documented in this encounter Results * US BREAST OUTSIDE IMAGES (07/30/2025 2:48 PM EDT) Anatomical Region Laterality Modality Breast Mammography 07/30/2025 2:48 PM EDT us External Provider IMG BI PROCEDURES Edited Resul t - Final documented in this encounter Visit Diagnoses Not on filedocumented in this encounter
--- OUTSIDE RECORDS SUMMARY | 2025-09-23 18:36 | XMS_ITS | Encounter Summary ---
Author Organization [facility] Address [address] [place] [address] Care Team Providers Care Certified Pesticide Applicator Name Role Phone Unavailable Primary Care Provider Unavailabl e Encounter Details Date Type Department Care Team (Late st Contact Info) Description 07/24/2024 Orders Only External Location [address] [place] [address] [place] [address] Social History Tobacco Use Types Packs/Day Years [...] Associated Diagnosis Comments MAMMOGRAPHY OUTSIDE IMAGES UPLOAD 07/24/2024 4:34 PM EDT documented in this encounter Results * Mammography Outside Images Upload (07/24/2024 4:34 PM EDT) Anatomical Region Laterality Modality Mammography 07/24/2024 4:34 PM EDT us Hazel Antoine DO IMG BI PROCEDURES Edited Resul t - Final documented in this encounter Visit Diagnoses Not on filedocumented in this encounter
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
[2025-09-23] MEDS: IBUPROFEN 600 MG TABLET PO (18:57)
[2025-09-23] MEDS: ACETAMINOPHEN 500MG TAB 1000 MG PO (18:57)
[2025-09-23 19:09] LABS: Urine Pregnancy, HCG Qual. Negative (Negative)
[2025-09-23 19:17] VITALS: BP 134/92; PULSE 92; RESP 16; O2SAT 97
[2025-09-23 20:10] VITALS: BP 136/87; PULSE 72; RESP 18; TEMP 36.8; O2SAT 99
== END 2025-09-23 20:18 | disposition home or self-care (01) ==
PROVIDERS: Emergency Provider Student in an Organized Health Care Education/Training Program
DX: S16.1XXA Strain of muscle, fascia and tendon at neck level, initial encounter (principal); V49.60XA Unspecified car occupant injured in collision with unspecified motor vehicles in traffic accident, initial encounter; Y92.414 Local residential or business street as the place of occurrence of the external cause; M25.512 Pain in left shoulder; R51.9 Headache, unspecified
CPT/HCPCS: 71045; 73030; 81025; 99284; 99285